=== PATIENT | male | born 1995 | race Caucasian/White ===

== ENCOUNTER 2019-05-24 19:20 | Emergency (ER) | payer BC ==
[~2019-05-24] VITALS: Ht 182.9 cm; Wt 81.8 kg
[~2019-05-24 19:20] MED LIST: PREDNISONE20 MG PO
[2019-05-24 19:23] VITALS: BP 139/72
[2019-05-24 21:07] VITALS: PULSE 81; TEMP 98.2
== END 2019-05-24 21:15 | disposition home or self-care (01) ==
LOC: COL.ER 19:20
DX: T78.40XA Allergy, unspecified, initial encounter (principal)
CPT/HCPCS: J1100; J1200; J7030